=== PATIENT | male | born 1975 | race Caucasian/White ===

== ENCOUNTER → 2017-07-16 | Outpatient (CLI) | payer BC | LOC: RAD 14:45 | DX: M54.5 Low back pain (principal); R31.9 Hematuria, unspecified | CPT/HCPCS: 74000 ==

== ENCOUNTER → 2017-07-25 | Outpatient (CLI) | payer BC ==
--- NOTE | 2017-07-25 21:50 | Diagnostic Imaging Report ---
EXAMINATION: Supine view of the abdomen. INDICATION: Right-sided stone. FINDINGS: On the right side of the pelvis there is an 8 mm calcification which could relate to a distal ureteric stone. No other calcifications along the urinary tract are identified. Unremarkable bowel gas pattern is seen. IMPRESSION: There is an 8 mm calcification in the right side of the pelvis which could be a distal right ureteric stone. Dictated by: Dictated on workstation # [id number]
== END ==
LOC: RAD 10:54
PROVIDERS: ATTEND Urology
DX: R93.5 Abnormal findings on diagnostic imaging of other abdominal regions, including retroperitoneum (principal)
CPT/HCPCS: 74000

== ENCOUNTER → 2022-09-13 | Outpatient (CLI) | payer BC ==
[~2022-09-13] VITALS: Ht 182.9 cm; Wt 147.7 kg
[~2022-09-13] MED LIST: DICL75TA2 PO; GLUC100016 PO; LISI40TA9 PO
== END | disposition home or self-care (01) ==
LOC: PREOP 05:41
PROVIDERS: ATTEND Surgery
DX: Z01.818 Encounter for other preprocedural examination (principal)

== ENCOUNTER 2022-09-19 11:09 | Day surgery (SDC) | payer BC ==
[~2022-09-19] VITALS: Ht 182 cm; Wt 147.7 kg
[2022-09-19] MEDS ORDERED: LACTATED RINGERS 1,000 ML IV STA (11:12)
[2022-09-19] MEDS ORDERED: LIDOCAINE JELLY 2% 6 ML SYRINGE MM PRN (11:15)
[2022-09-19 11:38] VITALS: BP 127/62
--- NOTE | 2022-09-19 11:47 | Progress Note-Pre Operative ---
Pre-Operative Progress Note Date of Available H&P: Sep 19, 2022 Date H&P Reviewed: Sep 19, 2022 Time H&P Reviewed: 11:30 History & Physical: No changes noted Pre-Operative Diagnosis: screening/family hx colon ca ADRIANNA LY MD Sep 19, 2022 11:47
--- NOTE | 2022-09-19 11:48 | Discharge Inst-Surgical ---
D/C Lap Instructions-MALACHI Follow Up Activity as tolerated High Fiber Diet 25g or more per day Avoid Alcohol, Caffeine, Spicy [place] and Acid foods. Drink 64 fluid oz or more of fluids per day. Symptoms to Report: Fever over 101 degree F, Nausea/Vomiting If any problems/questions: Contact your physician or go to Emergency Room ADRIANNA LY MD Sep 19, 2022 11:48
[2022-09-19] MEDS ORDERED: ONDANSETRON 4 MG/2 ML (SDV) Z0FRAN IVP PRN (12:00)
[2022-09-19] MEDS ORDERED: ONDANSETRON 4 MG (ZOFRAN) ORAL DISSOLVE TAB PO PRN (12:00)
[2022-09-19] MEDS ORDERED: PROPOFOL INJECTION 50 ML IV ONE (12:24)
[2022-09-19 13:20] VITALS: BP 93/52
--- NOTE | 2022-09-19 13:22 | Anesthesia-General Post-Op ---
MAC Patient Condition Mental Status/LOC: Same as Preop Cardiovascular: Satisfactory Nausea/Vomiting: Absent Respiratory: Satisfactory Pain: Controlled Complications: Absent Post Op Complications Complications None Follow Up Care/Instructions Patient Instructions None needed. Anesthesiology Discharge Order Discharge Order Patient is doing well, no complaints, stable vital signs, no apparent adverse anesthesia problems. No complications reported per nursing. OTTO CH CRNA Sep 19, 2022 13:22
[2022-09-19 13:25] VITALS: BP 108/60
--- NOTE | 2022-09-19 13:36 | Progress Note-Post Operative ---
Post-Operative Progess Note Surgeon (s)/Smt Technician (s) Surgeon ADRIANNA LY MD Smt Technician: none Pre-Operative Diagnosis screening/family hx colon ca Post-Operative Diagnosis normal colon and rectum Procedure & Operative Findings Date of Procedure 09/19/22 Procedure Performed/Findings colonoscopy. Anesthesia Type mac Estimated Blood Loss Estimated blood loss (mL): minimal Specimens/Packing Specimens Removed none ADRIANNA LY MD Sep 19, 2022 13:36
[2022-09-19 13:50] VITALS: BP 119/78
[2022-09-19 13:58] VITALS: BP 119/78
--- NOTE | 2022-09-20 01:16 | OPERATIVE REPORT ---
DATE OF SERVICE: 09/19/2022 ATTENDING PRIMARY CARE PHYSICIAN: Moraima Veras DO PREOPERATIVE DIAGNOSIS: Screening colonoscopy with family history of colon cancer. POSTOPERATIVE DIAGNOSIS: Normal colon and rectum. PROCEDURE: Colonoscopy. SURGEON: Adrianna Ly MD ANESTHESIA: Monitored anesthesia care. ESTIMATED BLOOD LOSS: Minimal. FINDINGS: Normal colon and rectum. DISPOSITION: The patient tolerated the procedure well. INDICATIONS: The patient is a 46-year-old male referred her to us for a screening colonoscopy. He did have one done approximately 10 years ago, which was normal. He does not report any major issues with diarrhea or constipation as well as no red blood per rectum, nor any dark tarry stools. He does have a first-degree family history of colon cancer with his mother having the disease. DESCRIPTION OF PROCEDURE: The patient was brought to the endoscopy suite and laid in the left lateral decubitus position. After adequate IV pain associated with medications and monitored anesthesia care, a digital rectal examination was performed, which revealed chronic stage I, external and internal hemorrhoids, not actively edematous or inflamed and no bleeding. Normal sphincter tone was felt and there were no palpable masses. Prostate gland was palpable and appeared normal. The endoscope was then intubated into the anus and rectum gently insufflated. The endoscope was then advanced through the valves of [place] of the rectum with no polyps or any neoplasms. We then proceeded through the sigmoid colon where no diverticulosis identified. The endoscope was then advanced through the remainder of the descending, transverse and ascending colon to the cecum, which were normal. There were no polyps or neoplasms identified throughout the colon or rectum. The endoscope was then slowly withdrawn, taking a second look and suctioning of residual air with no additional findings. The patient tolerated the procedure well. We will recommend the necessary lifestyle and dietary accommodations including the incorporation of a high-fiber diet with a fiber supplement, which should equal or exceed 30 grams daily to promote soft stools on a daily basis. If he is asymptomatic, we will still recommend a followup colonoscopy every 5 years due to his first-degree family history of colon cancer. Job ID: [id number] DocumentID: [id number] Dictated Date: 09/19/2022 13:19:24 Field Laborer Date: 09/20/2022 01:15:00 Dictated By: ADRIANNA LY MD
== END 2022-09-19 13:58 | disposition home or self-care (01) ==
LOC: ENDO 11:09
PROVIDERS: ATTEND Surgery
DX: Z12.11 Encounter for screening for malignant neoplasm of colon (principal); Z80.0 Family history of malignant neoplasm of digestive organs; K64.0 First degree hemorrhoids; K64.4 Residual hemorrhoidal skin tags; E66.01 Morbid (severe) obesity due to excess calories; Z68.41 Body mass index [BMI] 40.0-44.9, adult

== ENCOUNTER → 2022-10-11 | Outpatient (CLI) | payer BC ==
--- NOTE | 2022-10-11 18:26 | Diagnostic Imaging Report ---
EXAMINATION: Left knee radiographs, 3 views. COMPARISON: None. HISTORY: 46-year-old male, left knee pain. Dislocation injury 2 weeks ago. FINDINGS: There is severe medial and patellofemoral compartment joint space loss. There are tricompartmental osteophytes. There is no knee joint effusion. Bone mineralization and alignment appear unremarkable. There is no identified acute fracture. There is no identified radiopaque foreign body. IMPRESSION: 1. No acute bony abnormality in the left knee. 2. Severe medial and patellofemoral compartment osteoarthritis without knee joint effusion. Dictated by: Dictated on workstation # [id number]
== END ==
LOC: RAD 12:23
PROVIDERS: ATTEND Nurse Practitioner Family
DX: M17.12 Unilateral primary osteoarthritis, left knee (principal); S83.105D Unspecified dislocation of left knee, subsequent encounter
CPT/HCPCS: 73562

== ENCOUNTER → 2022-10-30 | Outpatient (CLI) | payer BC | LOC: ORTHO 10:32 | PROVIDERS: ATTEND Orthopaedic Surgery | DX: M17.12 Unilateral primary osteoarthritis, left knee (principal); I10 Essential (primary) hypertension | CPT/HCPCS: 99213 ==

== ENCOUNTER 2022-11-19 08:55 | Day surgery (SDC) | payer BC ==
[2022-11-19] VITALS (11 sets, daily range): BP systolic 95–147; BP diastolic 53–97
[~2022-11-19] VITALS: Ht 180 cm; Wt 153.1 kg
[~2022-11-19 08:55] MED LIST changes: -ACET-2267 PO; -ASPI-1238 PO; -OXC5T PO
[2022-11-19] MEDS ORDERED: ceFAZolin INJECTION 3,000 MG in NS (IVPB) 100 ML IV ONE (09:00)
[2022-11-19] MEDS ORDERED: LIDOCAINE PF 2% 5 ML (XYLOCAINE) VIAL ONE ×2 (10:10→10:48)
[2022-11-19] MEDS ORDERED: MIDAZOLAM 2 MG/2 ML (VERSED) VIAL ONE ×2 (10:10→10:48)
[2022-11-19] MEDS ORDERED: ROPIVACAINE 5MG/ML 30ML VIAL ONE (10:10)
[2022-11-19] MEDS: LACTATED RINGERS 1,000 ML IV PRN ×3 (10:14→12:53)
[2022-11-19] MEDS ORDERED: ONDANSETRON 4 MG/2 ML (SDV) Z0FRAN ONE (10:48)
[2022-11-19] MEDS ORDERED: proPOfol 200 MG/20 ML (DIPRIVAN) VIAL IV ONE ×2 (10:48→11:25)
[2022-11-19] MEDS ORDERED: SEVOFLURANE (ULTANE) 15 ML INHAL SOLN ONE ×2 (10:48→13:39)
[2022-11-19] MEDS ORDERED: fentaNYL INJ 100 MCG/2 ML AMP ONE (10:48)
[2022-11-19] MEDS ORDERED: TRANEXAMIC ACID 100 MG/ML 10 ML INJECTION ONE (11:54)
[2022-11-19] MEDS ORDERED: GLYCOPYRROLATE 0.2 MG/ML (ROBINUL) 2 ML VIAL ONE (11:58)
[2022-11-19] MEDS ORDERED: PHENYLEPHRINE 100 MCG/ML 10 ML (ANESTHESIA) SYR ONE (11:58)
[2022-11-19] MEDS ORDERED: HYDROmorphone 2 MG/ML VIAL (DILAUDID) ONE ×2 (12:14→14:11)
[2022-11-19] MEDS ORDERED: KETAMINE 50 MG/5 ML SYRINGE ONE (12:18)
[2022-11-19] MEDS ORDERED: KETOROLAC 30 MG/ML VIAL ONE (13:39)
--- NOTE | 2022-11-19 13:59 | Progress Note-Pre Operative ---
Pre-Operative Progress Note Date of Available H&P: Oct 31, 2022 Date H&P Reviewed: Nov 19, 2022 Time H&P Reviewed: 11:30 History & Physical: H&P Reviewed, Patient Examed, No changes noted Pre-Operative Diagnosis: Left Knee Primary Osteoarthritis SHARAD BANG MD Nov 19, 2022 13:59
--- NOTE | 2022-11-19 14:02 | Operative Report - Ortho ---
Operative Report Surgeon (s)/Software Development Intern (s) Surgeon SHARAD BANG MD Software Development Intern n/a Pre-Operative Diagnosis Left Knee Primary Osteoarthritis Post-Operative Diagnosis same Operative Report Date of Procedure: Nov 19, 2022 Name of Procedure Performed: Left Total Knee Arthroplasty Description & Findings After obtaining informed consent and marking the patient in the preoperative holding area, the patient did receive IV antibiotics. Patient was taken to the operating room and anesthesia was induced. Surgical timeout was taken. The left lower extremity was prepped and draped in the usual sterile fashion. Incision was made and carried down to fascia. Arthrotomy was performed on the medial side of the patella. Patella was retracted laterally and knee was flexed. Found to have circumferential osteophtye around the distal femur as well as exposed bone in the medial compartment. Hole was made in the distal femur for the intramedullary distal femoral cutting guide. Resection was made then the femur was sized as a 6. 4-in-1 block for a size [address]. Anterior cut was made and there was no notch. Posterior cut was made followed by the chamfers. Box cut was performed. Lug holes were drilled. Attention was turned to the tibial side, extramedullary tibial guide was put into place and aligned with the tibial crest. It was set to take 2 mm off of the affected medial side. Drop alistair was used to confirm alignment. Resection was made and was parallel to the joint line. Tibial bone block was removed. [place] hospice superintendent was put into place and the menisci and posterior osteophytes were removed. The knee was trialed with a size 5 femur and a size 5 tibia with a 9 mm poly trial. It was found to come out to full extension and flexed beyond 120 degrees. It was stable to varus and valgus stress throughout its range of motion. This was accepted. Knee was brought out into extension and the patella was prepared for an inset patellar component. Osteophytes were removed from around the perimeter of the patella. Trial implants were removed. Tibial tray was pinned and punched. Tibial press fit guide was placed and holes were drilled. The cut bone surfaces were lavaged with pulsatile normal saline. Implants were opened and assembled on the back table. A size 5 press fit tibial component was impacted into place. A size 5 press fit femoral component was impacted into place. Tibial tray was lavaged with saline. A 9 mm thick polyethylene component was locked into placed and the locking mechanism was checked. Knee was brought into extension. Patellar component was press fit in to place with clamp. Betadine soak was performed and then, the knee was irrigated with normal saline. The knee was once again trialed; found to come to full extension, flexed beyond 120 degrees, and was stable to varus and valgus stress. Tourniquet was dropped and electrocautery was used for hemostasis. Fascial layer was closed with #2 Stratafix. The subcutaneous layer was closed with 2-0 Vicryl. The skin was closed with a running subcuticular 3-0 V-loc. Wound was dressed with steri- strips, xeroform, 4x4s, ABD, webril, and ERIC wrap. Patient tolerated the procedure well and was stable to the recovery room. Anesthesia Type General plus regional Estimated Blood Loss ~150 mL Specimen(s) collected/removed None SHARAD BANG MD Nov 19, 2022 14:02
[2022-11-19] MEDS ORDERED: BISACODYL 5 MG (DULCOLAX) TABLET PO PRN (14:15)
[2022-11-19] MEDS ORDERED: ACETAMINOPHEN 500 MG TAB (TYLENOL) PO PRN (14:15)
[2022-11-19] MEDS ORDERED: ONDANSETRON 4 MG/2 ML (SDV) Z0FRAN IV PRN (14:15)
[2022-11-19] MEDS ORDERED: morphine INJ 4 MG/ML 1 ML (VIAL/SYRINGE) IVP PRN (14:15)
[2022-11-19] MEDS ORDERED: HYDROmorphone 2 MG/ML VIAL (DILAUDID) IV ONE (14:15)
[2022-11-19] MEDS ORDERED: MILK OF MAGNESIA 400 MG/5 ML 30 ML UDC PO PRN (14:15)
[2022-11-19] MEDS ORDERED: ONDANSETRON 4 MG/2 ML (SDV) Z0FRAN IVP PRN (14:15)
--- NOTE | 2022-11-19 14:33 | Diagnostic Imaging Report ---
CLINICAL HISTORY: Postop left total knee arthroplasty. COMPARISON: 11/19/2022. TECHNIQUE: 2 views of the left knee. FINDINGS: Interval postsurgical changes of left total knee arthroplasty are visualized. The femoral and tibial components appear well seated. No periprosthetic fracture. Alignment is anatomic. IMPRESSION: 1. Expected postsurgical changes of left total knee arthroplasty. Dictated by: Dictated on workstation # [id number]
[2022-11-19] MEDS: NS IV 1000 ML 1,000 ML IV SCH (15:49)
[2022-11-19] MEDS: ASPIRIN E.C. 81 MG (ECOTRIN) TAB PO SCH (17:03)
[2022-11-19] MEDS: DOCUSATE SODIUM 100 MG (COLACE) CAP PO SCH (20:11)
[2022-11-19] MEDS: CELECOXIB 100 MG (CeleBREX) CAP PO SCH (20:11)
[2022-11-19] MEDS: ceFAZolin INJECTION 2,000 MG in NS (IVPB) 50 ML IV SCH (20:11)
[2022-11-19] MEDS ORDERED: ceFAZolin INJECTION 2,000 MG in NS (IVPB) 50 ML IV SCH (21:00)
[2022-11-20] MEDS: NS IV 1000 ML 1,000 ML IV SCH ×2 (00:34→02:31)
[2022-11-20 03:32] VITALS: BP 113/65
[2022-11-20] MEDS: ceFAZolin INJECTION 2,000 MG in NS (IVPB) 50 ML IV SCH (04:43)
[2022-11-20 05:23] LABS: HEMOGLOBIN 11.7 g/dL (13.3-17.7)
[2022-11-20 07:42] VITALS: BP 141/80
[2022-11-20] MEDS: CELECOXIB 100 MG (CeleBREX) CAP PO SCH ×2 (08:07→20:04)
[2022-11-20] MEDS: lisINopril 40 MG (PRINIVIL) TABLET PO SCH (08:07)
[2022-11-20] MEDS: ASPIRIN E.C. 81 MG (ECOTRIN) TAB PO SCH ×2 (08:07→16:25)
[2022-11-20] MEDS: DOCUSATE SODIUM 100 MG (COLACE) CAP PO SCH ×2 (08:07→20:03)
--- NOTE | 2022-11-20 08:36 | Physical Therapy Evaluation ---
PT Evaluation-General Medical Diagnosis Admission Date November 19, 2022 Medical Diagnosis: left TKR Onset Date: Nov 19, 2022 Therapy Diagnosis Therapy Diagnosis: impaired mobility Precautions Precautions/Isolations: Fall Prevention, Standard Precautions Weight Bear Status Right Lower Extremity: Right Full Weight Bearing Left Lower Extremity: Left Weight Bearing/Tolerated Referral Physician: Hector Reason for Referral: Evaluation/Treatment Medical History Pertinent Medical History: OA Current History s/p elective left TKR Reviewed History: Yes Social History Home: Single Level Current Living Status: Alone Entry Into Home: Stairs Without Railing (platform) PT Steps Into Home: 1 Prior Prior Level of Function SCALE: Activities may be completed with or without assistive devices. 7-Vxrwvjrkot-qcjylte completes the activity by him/herself with no assistance from a helper. 5-Set-up or Clean-up Assistance-helper sets up or cleans up; patient completes activity. [place] assists only prior to or following the activity. 4-Supervision or Touching Assistance-helper provides verbal cues and/or touching/steadying and/or contact guard assistance as patient completes ac tivity. Assistance may be provided throughout the activity or intermittently. 3-Partial/Moderate Assistance-helper does LESS THAN HALF the effort. [place] lifts, holds or supports trunk or limbs, but provides less than half the effort. 2-Substantial/Maximal Assistance-helper does MORE THAN HALF the effort. [place] lifts or holds trunk or limbs and provides more than half the effort. 4-Pitdhlbuy-khrgaa does ALL the effort. Patient does none of the effort to complete the activity. Or, the assistance of 2 or more helpers is required for the patient to complete the activity. If activity was not attempted, code reason: 7-Patient Refused. 9-Not Applicable-not attempted and the patient did not perform the activity before the current illness, exacerbation or injury. 10-Not Attempted due to Environmental Limitations-(lack of equipment, weather restraints, etc.). 88-Not Attempted due to Medical Conditions or Safety Concerns. Bed Mobility: 6 Transfers (B,C,W/C): 6 Gait: 6 Stairs: 6 Indoor Mobility (Ambulation): Independent Stairs: Independent Prior Devices Use: None PT Evaluation-Current Subjective Patient agrees to PT. Pain Numeric Pain Scale: 7 Location: Left Location Body Site: Knee Pain Description: Acute Objective Patient Orientation: Normal For Age ROM/Strength ROM Lower Extremities left knee flexion 50 degrees with 0 extension right LE WFL Strength Lower Extremities right LE 5/5 grossly/left LE 3/5 grossly Integumentary/Posture Bowel Incontinence: No Bladder Incontinence: No Posture WFL Neuromuscular (Tone, Coordination, Reflexes) grossly intact Sensory Vision: Functional Hearing: Functional Sensation Right Lower Extremit: Intact Sensation Left Lower Extremity: Intact Transfers Lying to Sitting/Side of Bed(Q: 4 Sit to Stand (QC): 4 Chair/Nua-da-Uqvqi Xfer(QC): 4 Gait Mode of Locomotion: Walk Anticipated Mode of Locomotion: Walk Walk 10 feet (QC): 4 Walk 50 ft with 2 Turns(QC): 4 Walk 150 ft (QC): 4 Distance: 250' Gait Assistive Device: FWW Comments/Gait Description slow, steady, antalgic Balance Sitting Static: Normal Sitting Dynamic: Normal Standing Static: Normal Standing Dynamic: Normal Assessment/Needs Patient will benefit from skilled PT to address functional strength and mobility to improve current LOF to safely return to home at maximum LOF. Rehab Potential: Good PT Fur Dresser Goals Fur Dresser Goals PT Fur Dresser Goals Time Frame: Nov 24, 2022 Roll Left & Right (QC): 6 Sit to Lying (QC): 6 Lying-Sitting on Side/Bed(QC): 6 Sit to Stand (QC): 6 Chair/Pvc-wo-Qfxta Xfer(QC): 6 Toilet Transfer (QC): 6 Walk 10 feet (QC): 6 Walk 50ft with 2 Turns (QC): 6 Walk 150 ft (QC): 6 PT Plan Treatment/Plan Treatment Plan: Continue Plan of Care Treatment Plan: Bed Mobility, Education, Functional Activity Jim, Functional Strength, Gait, Safety, Therapeutic Exercise, Transfers Treatment Duration: Nov 24, 2022 Frequency: 11 times per week Estimated Hrs Per Day: .5 hour per day Patient and/or Family Agrees t: Yes Time Time In: 720 Time Out: 739 DATE: Nov 20, 2022 Total Billed Treatment Time: 19 Total Billed Treatment 1 visit EVModC 19 min LORI CYR PT Nov 20, 2022 08:36
--- NOTE | 2022-11-20 09:07 | Progress Note - Ortho ---
Progress Note Subjective Date of Exam 11/20/22 Chief Complaint POD #1 L TKA HPI/Events since last exam up in chair, made a lap with therapy, pain controlled Review of Systems - Allergies: Coded Allergies: No Known Drug Allergies (Unverified , 11/13/22) Home Meds Reported Medications Glucosamine/D3/Boswellia Sonia (Osteo Bi-Flex Tablet) 1,500 Mg-400 Unit-100 Mg Tablet, 1 EACH PO, TAB 11/12/22 Multivitamin (Multivitamin) 1 Each Tablet, 1 EACH PO DAILY, TAB 11/12/22 Diclofenac Sodium (Diclofenac Sodium) 75 Mg Tablet.dr, 75 MG PO DAILY, TAB 09/13/22 Lisinopril (Lisinopril) 40 Mg Tablet, 40 MG PO DAILY, TAB 09/13/22 Discontinued Reported Medications Glucosamine Sulfate 2Kcl (Glucosamine) 1,000 Mg Tablet, 1000 MG PO DAILY, TAB 09/13/22 Objective Exam L Knee: Dressing beginning to sag but C/D/I, +DF of ankle, no s/s of DVT Vital Signs Vital Signs Date Time Temp Pulse Resp B/P (MAP) Pulse Ox O2 Delivery O2 Flow Rate FiO2 11/20/22 08:20 95 Room Air 11/20/22 07:42 36.4 85 20 141/80 (100) 95 Room Air 2.00 2.00 11/20/22 03:32 37.5 77 18 113/65 (81) 95 Room Air 11/19/22 23:09 37.8 90 20 101/59 (73) 92 Room Air 11/19/22 20:15 Room Air 11/19/22 19:25 37.4 98 20 115/57 (76) 92 Room Air 11/19/22 15:30 36.6 92 20 130/92 (105) 97 Room Air 11/19/22 15:00 36.3 20 118/95 (103) 97 Room Air 11/19/22 15:00 Room Air 11/19/22 14:50 20 120/94 (103) 97 Room Air 11/19/22 14:45 OxyMask 2.00 11/19/22 14:40 20 119/86 (97) 98 OxyMask 4.00 11/19/22 14:30 20 119/86 (97) 98 OxyMask 4.00 11/19/22 14:30 OxyMask 3.00 2/6/23 14:20 20 138/79 (98) 98 OxyMask 6.00 11/19/22 14:15 OxyMask 6.00 11/19/22 14:10 20 110/63 (79) 96 OxyMask 6.00 11/19/22 14:00 OxyMask 6.00 11/19/22 14:00 36.3 20 95/53 (67) 96 OxyMask 6.00 11/19/22 09:45 36.6 76 20 147/97 (114) 98 Room Air I & O 11/20/22 07:00 Intake Total 3822 ml Output Total 975 ml Balance 2847 ml Lab Results Laboratory Tests 11/20/22 05:00: Hemoglobin 11.7L, Hematocrit 35L Microbiology 11/13/22 MRSA Screen - Final, Complete MRSA not isolated Imaging 2 postop views of the left knee dated 11/20/22 were reviewed AP with good alignment and no complication, second image is very obliqued and not much diagnostic use Assessment and Plan Assessment Left Knee Primary Osteoarthritis s/p Left Total Knee Arthroplasty Problem List Left Knee Primary Osteoarthritis s/p Left Total Knee Arthroplasty Plan PT/OT DVT Prophylaxis Plan for home with home health tomorrow Final Diagonsis Left Knee Primary Osteoarthritis s/p Left Total Knee Arthroplasty Level of the visit: Level 3 (global) SHARAD BANG MD Nov 20, 2022 09:07
--- NOTE | 2022-11-20 09:16 | Occupational Therapy Eval ---
OT Evaluation-General/PLF Medical Diagnosis Admission Date Medical Diagnosis: left TKR Onset Date: Nov 19, 2022 Therapy Diagnosis Therapy Diagnosis: weakness Precautions Precautions/Isolations: Fall Prevention, Standard Precautions Weight Bear Status Weight Bearing Restriction: Weight Bearing/Tolerated Location Restriction: L LE Referral Physician: Hector Referral Reason: Evaluation/Treatment Medical History Pertinent Medical History: OA Current History s/p LTKA Reviewed History: Yes Social History Home: Single Level Current Living Status: Alone Entry Into Home: Stairs Without Railing (platform) Steps Into Home: 1 ADL-Prior Level of Function SCALE: Activities may be completed with or without assistive devices. 8-Jjuilqaduj-fgopezt completes the activity by him/herself with no assistance from a helper. 5-Set-up or Clean-up Assistance-helper sets up or cleans up; patient completes activity. [place] assists only prior to or following the activity. 4-Supervision or Touching Assistance-helper provides verbal cues and/or touching/steadying and/or contact guard assistance as patient completes activity. Assistance may be provided throughout the activity or intermittently. 3-Partial/Moderate Assistance-helper does LESS THAN HALF the effort. [place] lifts, holds or supports trunk or limbs, but provides less than half the effort. 2-Substantial/Maximal Assistance-helper does MORE THAN HALF the effort. [place] lifts or holds trunk or limbs and provides more than half the effort. 5-Ilhlwrrdb-ownsat does ALL the effort. Patient does none of the effort to complete the activity. Or, the assistance of 2 or more helpers is required for the patient to complete the activity. If activity was not attempted, code reason: 7-Patient Refused. 9-Not Applicable-not attempted and the patient did not perform the activity before the current illness, exacerbation or injury. 10-Not Attempted due to Environmental Limitations-(lack of equipment, weather restraints, etc.). 88-Not Attempted due to Medical Conditions or Safety Concerns. 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, [address] Self: Yes OT Current Status Subjective Up in chair w/ LLE in extension 4/10 c/o pain Pain Numeric Pain Scale: 4 Location: Left Location Body Site: Knee Mental Status/Objective Patient Orientation: Person, Place, Time, Situation Attachments: IV, Polar Pack (in room declines use at this time) Current Upper Extremity ROM BUE ROM/Strength/coordination and sensation WNLs ADL-Treatment ADL-Current LB dressing and toileting Eating (QC): 6 Oral Hygiene (QC): 5 Shower/Bathe Self (QC): 7 (declines) Upper Body Dressing (QC): 5 Lower Body Dressing (QC): 5 On/Off Footwear (QC): 5 Toileting Hygiene (QC): 5 set up d/t IV pole and AD for ambulation Other Treatments polar pack use and education Education OT Patient Education: Correct positioning, Energy conservation, Modified ADL techniques, Progress toward Goal/Update tx plan, Purpose of tx/functional activities, Reviewed precautions, Rehab process, Safety issues, Transfer techniques, Use of adapted equipment Teaching Recipient: Patient Teaching Methods: Demonstration, Discussion Response to Teaching: Verbalize Understanding, Return Demonstration, Reinforcement Needed OT Machine Lead Burner Goals Machine Lead Burner Goals Additional Goals: 1-Demonstrate ADL Tasks, 2-Verbalize Understanding 1=Demonstrate adherence to instructed precautions during ADL tasks. 2=Patient will verbalize/demonstrate understanding of assistive devices/modifications for ADL. 3=Patient will improve strength/tolerance for activity to enable patient to perform ADL's. OT Education/Plan Problem List/Assessment Assessment: No Skilled OT Needs ID'd Discharge Recommendations Plan/Recommendations: Discharge/Goals Met Therapy Discharge Recommendati: Post Acute PT Treatment Plan/Plan of Care Treatment,Training & Education: Yes Patient would benefit from OT for education, treatment and training to promote independence in ADL's, mobility, safety and/or upper extremity function for ADL's. Plan of Care: OTHER (post op education for I/ADLS) Treatment Duration: Nov 20, 2022 Frequency: 1 time per week Rehab Potential: Good Time Start Time: 08:49 Stop Time: 09:20 DATE: Nov 20, 2022 Total Time Billed (hr/min): 31 Billed Treatment Time 1 visit EVL 1 ADL 1 31 min TRELL MONTES OT Nov 20, 2022 09:16
--- NOTE | 2022-11-20 10:00 | Anesthesia-General Post-Op ---
General Patient Condition Mental Status/LOC: Same as Preop Cardiovascular: Satisfactory Nausea/Vomiting: Absent Respiratory: Satisfactory Pain: Controlled Complications: Absent Post Op Complications Complications None Follow Up Care/Instructions Patient Instructions None needed. Anesthesia/Patient Condition Patient Condition Patient is doing well, no complaints, stable vital signs, no apparent adverse anesthesia problems. No complications reported per nursing. D/C home per [facility] Criteria: Yes TYRONE MARES CRNA Nov 20, 2022 10:00
[2022-11-20] MEDS ORDERED: ACET-2267 PO (11:33)
[2022-11-20 11:36] VITALS: BP 123/78
--- NOTE | 2022-11-20 13:48 | Physical Therapy Daily Note ---
PT Daily Note-Current Subjective Patient agrees to PT. Pain Numeric Pain Scale: 5-Moderate Pain Location: Left Location Body Site: Knee Pain Description: Acute Section J - Health Conditions 1. Rarely or not at all 2. Occasionally 3. Frequently 4. Almost constantly 8. Unable to answer Pain Effect on Sleep: 1 Pain Interference with Therapy: 1 Pain Interference w/Day-to-Day: 1 Mental Status Patient Orientation: Normal For Age Transfers SCALE: Activities may be completed with or without assistive devices. 4-Cldpbpvdam-srnbhco completes the activity by him/herself with no assistance from a helper. 5-Set-up or Clean-up Assistance-helper sets up or cleans up; patient completes activity. [place] assists only prior to or following the activity. 4-Supervision or Touching Assistance-helper provides verbal cues and/or touching/steadying and/or contact guard assistance as patient completes activity. Assistance may be provided throughout the activity or intermittently. 3-Partial/Moderate Assistance-helper does LESS THAN HALF the effort. [place] lifts, holds or supports trunk or limbs, but provides less than half the effort. 2-Substantial/Maximal Assistance-helper does MORE THAN HALF the effort. [place] lifts or holds trunk or limbs and provides more than half the effort. 5-Mpbjglrby-ebganv does ALL the effort. Patient does none of the effort to complete the activity. Or, the assistance of 2 or more helpers is required for the patient to complete the activity. If activity was not attempted, code reason: 7-Patient Refused. 9-Not Applicable-not attempted and the patient did not perform the activity before the current illness, exacerbation or injury. 10-Not Attempted due to Environmental Limitations-(lack of equipment, weather restraints, etc.). 88-Not Attempted due to Medical Conditions or Safety Concerns. Sit to Stand (QC): 6 Weight Bearing Right Lower Extremity: Right Full Weight Bearing Left Lower Extremity: Left Weight Bearing/Tolerated Gait Training Distance: 250' Walk 10 feet (QC): 6 Walk 50 ft with 2 Turns(QC): 6 Walk 150 ft (QC): 6 Gait Assistive Device: FWW slow, steady, antalgic gait Exercises Supine Ex: Ankle pumps, Quad Set, Heel Slides, Straight leg raise Supine Reps: 15 (in recliner with bilateral LE elevated.) Seated Therapy Exercises: Long arc quads Seated Reps: 15 Assessment Patient instructed to ambulate PRN in hallway independently. RN notified. Patient progressing with treatment plan and will dismiss tomorrow after PT. PT Senior Premium Auditor Goals Senior Premium Auditor Goals PT Senior Premium Auditor Goals Time Frame: Nov 24, 2022 Roll Left & Right (QC): 6 Sit to Lying (QC): 6 Lying-Sitting on Side/Bed(QC): 6 Sit to Stand (QC): 6 Chair/Wrv-rc-Reibw Xfer(QC): 6 Toilet Transfer (QC): 6 Walk 10 feet (QC): 6 Walk 50ft with 2 Turns (QC): 6 Walk 150 ft (QC): 6 PT Plan Treatment/Plan Treatment Plan: Continue Plan of Care Treatment Plan: Bed Mobility, Education, Functional Activity Jim, Functional Strength, Gait, Safety, Therapeutic Exercise, Transfers Treatment Duration: Nov 24, 2022 Frequency: 11 times per week Estimated Hrs Per Day: .5 hour per day Patient and/or Family Agrees t: Yes Time Time In: 1250 Time Out: 1300 DATE: Nov 20, 2022 Total Billed Treatment Time: 10 Total Billed Treatment 1 visit FA 10 min LORI CYR PT Nov 20, 2022 13:48
[2022-11-20 15:16] VITALS: BP 146/81
[2022-11-20 19:01] VITALS: BP_SYST 141; BP_SYST 167; BP_DIAS 76; BP_DIAS 82
[2022-11-20 23:26] VITALS: BP 136/76
[2022-11-21 04:05] VITALS: BP 131/83
[2022-11-21 05:20] LABS: HEMOGLOBIN 11.4 g/dL (13.3-17.7)
[2022-11-21] MEDS: DOCUSATE SODIUM 100 MG (COLACE) CAP PO SCH (07:42)
[2022-11-21] MEDS: lisINopril 40 MG (PRINIVIL) TABLET PO SCH (07:42)
[2022-11-21] MEDS: CELECOXIB 100 MG (CeleBREX) CAP PO SCH (07:42)
[2022-11-21] MEDS: ASPIRIN E.C. 81 MG (ECOTRIN) TAB PO SCH (07:43)
--- NOTE | 2022-11-21 07:55 | Physical Therapy Daily Note ---
PT Daily Note-Current Subjective Pt. agrees to Rx, states he slept better. c/o pain in left knee at 5/10 Pain Numeric Pain Scale: 5-Moderate Pain Location: Left Location Body Site: Knee Pain Description: Ache Section J - Health Conditions 1. Rarely or not at all 2. Occasionally 3. Frequently 4. Almost constantly 8. Unable to answer Pain Effect on Sleep: 1 Pain Interference with Therapy: 2 Pain Interference w/Day-to-Day: 1 Mental Status Patient Orientation: Normal For Age Attachments: Other-See Comments (polar pack after Rx) Transfers SCALE: Activities may be completed with or without assistive devices. 3-Dzrxgpdmtf-yeplilp completes the activity by him/herself with no assistance from a helper. 5-Set-up or Clean-up Assistance-helper sets up or cleans up; patient completes activity. [place] assists only prior to or following the activity. 4-Supervision or Touching Assistance-helper provides verbal cues and/or touching/steadying and/or contact guard assistance as patient completes activity. Assistance may be provided throughout the activity or intermittently. 3-Partial/Moderate Assistance-helper does LESS THAN HALF the effort. [place]oden lifts, holds or supports trunk or limbs, but provides less than half the effort. 2-Substantial/Maximal Assistance-helper does MORE THAN HALF the effort. [place] lifts or holds trunk or limbs and provides more than half the effort. 1-Dchkmdnmo-qiekri does ALL the effort. Patient does none of the effort to complete the activity. Or, the assistance of 2 or more helpers is required for the patient to complete the activity. If activity was not attempted, code reason: 7-Patient Refused. 9-Not Applicable-not attempted and the patient did not perform the activity before the current illness, exacerbation or injury. 10-Not Attempted due to Environmental Limitations-(lack of equipment, weather restraints, etc.). 88-Not Attempted due to Medical Conditions or Safety Concerns. Roll Left & Right (QC): 6 Sit to Lying (QC): 4 Lying to Sitting/Side of Bed(Q: 6 Sit to Stand (QC): 6 Chair/Ajt-vs-Cxnyh Xfer(QC): 6 pt. continues dependent for SLR and was assisted CGA to min with LLE into bed Weight Bearing Right Lower Extremity: Right Full Weight Bearing Left Lower Extremity: Left Weight Bearing/Tolerated Gait Training Does the Patient Walk?: Yes Gait Assistive Device: FWW 350ft plus with SBA, no LOB, good heel strike and knee flexion with toe off. , equal step length good pattern Exercises Supine Ex: Ankle pumps, Quad Set, Heel Slides, Short Arc Quads, Scooting, Straight leg raise (asstd) Supine Reps: 12 (x2) emphasis on SLR fortunato for sit to sup Treatments TKR ex protocol, TRFs, gait, polar pack ice refilled and applied after Rx for pain control Assessment Current Status: Good Progress PT Halfway Goals Halfway Goals PT Digital Advertising Analyst Goals Time Frame: Nov 24, 2022 Roll Left & Right (QC): 6 Sit to Lying (QC): 6 Lying-Sitting on Side/Bed(QC): 6 Sit to Stand (QC): 6 Chair/Zfa-dm-Wktoz Xfer(QC): 6 Toilet Transfer (QC): 6 Walk 10 feet (QC): 6 Walk 50ft with 2 Turns (QC): 6 Walk 150 ft (QC): 6 PT Plan Treatment/Plan Treatment Plan: Continue Plan of Care Treatment Plan: Bed Mobility, Education, Functional Activity Jim, Functional Strength, Gait, Safety, Therapeutic Exercise, Transfers Treatment Duration: Nov 24, 2022 Frequency: 11 times per week Estimated Hrs Per Day: .5 hour per day Patient and/or Family Agrees t: Yes Safety Risks/Education Patient Education: Gait Training, Transfer Techniques, Correct Positioning, Disease Process Teaching Recipient: Patient Teaching Methods: Demonstration, Discussion Response to Teaching: Verbalize Understanding, Return Demonstration, Reinforcement Needed Time Time In: 725 Time Out: 750 DATE: Nov 21, 2022 Total Billed Treatment Time: 25 Total Billed Treatment 1,GT13,EX12 DORINA FERNÁNDEZ DRAWER WAXER Nov 21, 2022 07:55
[2022-11-21 08:05] VITALS: BP 142/104
[2022-11-21 08:08] VITALS: BP 139/76
[2022-11-21] MEDS ORDERED: OXC5T PO (09:05)
[2022-11-21] MEDS ORDERED: ASPI-1238 PO (09:05)
--- NOTE | 2022-11-21 09:10 | Discharge Summary ---
Discharge Summary Hospital Course Hospital Course Date of Admission: 11/19/21 Admission Diagnosis : Left Knee Primary Osteoarthritis Family Physician/Provider: Moraima Veras DO Date of Discharge: 11/21/22 Discharge Diagnosis: [Left Knee Primary Osteoarthritis s/p Total Knee Arthroplasty ] Hospital Course: [On 11/19/22, patient underwent left total knee arthroplasty. Tolerated the procedure well and was transferred to the regular floor. On the day of surgery, began mechanical DVT prophylaxis and started to work with therapy. On POD #1, made good progress with therapy and began chemical DVT prophylaxis. On POD #2, continued to make progress with therapy and home health arrangements were made. Patient was ready for discharge home.] Labs and Pending Lab Test: Laboratory Tests 11/21/22 04:58: Hemoglobin 11.4L, Hematocrit 34L Microbiology 11/13/22 MRSA Screen - Final, Complete MRSA not isolated Home Meds Active Oxyir Tablet (Oxycodone HCl) 5 Mg Tab 10 Mg PO Q4H PRN 7 Days Aspirin EC (Aspirin) 81 Mg Tablet.dr 81 Mg PO BID WITH MEALS 14 Days Reported Tylenol Extra Strength (Acetaminophen) 500 Mg Tablet 500-1,000 Mg PO Q8H PRN Osteo Bi-Flex Tablet (Glucosamine/D3/Boswellia Sonia) 1,500 Mg-400 Unit-100 Mg Tablet 1 Each PO HS Multivitamin 1 Each Tablet 1 Each PO DAILY Diclofenac Sodium 75 Mg Tablet.dr 75 Mg PO BID Lisinopril 40 Mg Tablet 40 Mg PO DAILY Assessment/Pt Instructions WBAT on left leg with walker for assist, dry dressing daily to incision site, home therapy for ROM/strengthening/gait training, F/U with Dr. Young ~2 weeks from date of surgery Discharge Physical Examination Vital Signs Vital Signs Date Time Temp Pulse Resp B/P (MAP) Pulse Ox O2 Delivery O2 Flow Rate FiO2 11/21/22 08:08 105 139/76 (97) 11/21/22 08:05 36.9 18 96 Room Air 11/20/22 07:42 2.00 2.00 Extremity: Other (L Knee: Incision C/D/I, +DF of ankle, no s/s of DVT) Allergies: Coded Allergies: No Known Drug Allergies (Unverified , 11/13/22) Discharge Summary Date of Admission Date of Discharge SHARAD YOUNG MD Nov 21, 2022 09:10
--- NOTE | 2022-11-21 09:11 | D/C HH Face to Face Order ---
D/C Face to Face Orders Instructions for Patient Via [facility], Patient Instructions/FollowUp: WBAT on left leg with walker for assist, dry dressing daily to incision site, home therapy for ROM/strengthening/gait training, F/U with Dr. Young ~2 weeks from date of surgery Physician to follow Patient: Malick Young Discharge Diet for Home: Regular Diet Patient Data-Allergies,Ht & Wt Patient Allergies: Coded Allergies: No Known Drug Allergies (Unverified , 11/13/22) Home Health Need/Face to Face Date of Face to Face: Nov 21, 2022 Clinical Findings: Muscle weakness, Pain with ambulation I have seen Pt szqk-gl-udbj: Yes Discharged To: Home Diagnosis/Conditions: Left Knee Primary Osteoarthritis s/p TKA Patient is Homebound due to: Muscle weakness, Pain w/ambulation Homebound Status Due to the above stated illness, injury or surgical procedure (medical condition or diagnosis) and associated clinical findings, the patient is homebound because of his/her inability to leave home except with aid of a supportive device and/or person AND leaving the home requires a considerable and taxing effort or is medically contraindicated. Pt req the following assistanc: Walker Home Health Nursing Orders Home Health Services Order: Physical Therapy-Evaluate & Treat Home Health Infusion Therapy Line Start Date: Nov 19, 2022 Certify Stmt I certify that this patient is under my care and that I, a nurse practitioner or a physician; a executive chef assistant working with me, had a face to face encounter that - meets the physician face to face encounter requirements with this patient as dated. MALICK YOUNG MD Nov 21, 2022 09:11
--- NOTE | 2022-11-21 10:59 | Physical Therapy Daily Note ---
PT Daily Note-Current Subjective Pt. agrees to Rx, family present and waiting for DC papers to be prepped. pt and family states they have all the equipment and arrangements for home ready. Pt. c/o pain at 4/10 left knee Pain Numeric Pain Scale: 4 Location: Left Location Body Site: Knee Pain Description: Ache Section J - Health Conditions 1. Rarely or not at all 2. Occasionally 3. Frequently 4. Almost constantly 8. Unable to answer Pain Effect on Sleep: 1 Pain Interference with Therapy: 2 Pain Interference w/Day-to-Day: 1 Mental Status Patient Orientation: Normal For Age Attachments: Polar Pack Transfers SCALE: Activities may be completed with or without assistive devices. 4-Dzisdbdgqd-xowreqc completes the activity by him/herself with no assistance from a helper. 5-Set-up or Clean-up Assistance-helper sets up or cleans up; patient completes activity. [place] assists only prior to or following the activity. 4-Supervision or Touching Assistance-helper provides verbal cues and/or touching/steadying and/or contact guard assistance as patient completes activity. Assistance may be provided throughout the activity or intermittently. 3-Partial/Moderate Assistance-helper does LESS THAN HALF the effort. [place] lifts, holds or supports trunk or limbs, but provides less than half the effort. 2-Substantial/Maximal Assistance-helper does MORE THAN HALF the effort. [place] lifts or holds trunk or limbs and provides more than half the effort. 0-Roitmzfxd-bmdatx does ALL the effort. Patient does none of the effort to complete the activity. Or, the assistance of 2 or more helpers is required for the patient to complete the activity. If activity was not attempted, code reason: 7-Patient Refused. 9-Not Applicable-not attempted and the patient did not perform the activity before the current illness, exacerbation or injury. 10-Not Attempted due to Environmental Limitations-(lack of equipment, weather restraints, etc.). 88-Not Attempted due to Medical Conditions or Safety Concerns. pt. required min to CGA into bed LLE, uses RLE to support LLE Weight Bearing Right Lower Extremity: Right Full Weight Bearing Left Lower Extremity: Left Weight Bearing/Tolerated Gait Training Does the Patient Walk?: Yes Gait Assistive Device: FWW 400ft Mod I no LOB, good pattern , heavy wt bearing on FWW Stair Training discussed/ educated in stair step sequence, pt. has one platform type step at home Exercises Supine Ex: Ankle pumps, Quad Set, Heel Slides, Short Arc Quads, Straight leg raise (asstd) Supine Reps: 12 Treatments GT,EX,TRFs Assessment Current Status: Good Progress PT Brand Planner Goals Senior Living Goals PT Brand Planner Goals Time Frame: Nov 24, 2022 Roll Left & Right (QC): 6 Sit to Lying (QC): 6 Lying-Sitting on Side/Bed(QC): 6 Sit to Stand (QC): 6 Chair/Cjv-df-Rhpia Xfer(QC): 6 Toilet Transfer (QC): 6 Walk 10 feet (QC): 6 Walk 50ft with 2 Turns (QC): 6 Walk 150 ft (QC): 6 PT Plan Treatment/Plan Treatment Plan: Discontinue PT Treatment Plan: Bed Mobility, Education, Functional Activity Jim, Functional Strength, Gait, Safety, Therapeutic Exercise, Transfers Treatment Duration: Nov 24, 2022 Frequency: 11 times per week Estimated Hrs Per Day: .5 hour per day Patient and/or Family Agrees t: Yes Safety Risks/Education Patient Education: Gait Training, Transfer Techniques, Correct Positioning, Instructions to Caregiver, Disease Process, Safety Issues Teaching Recipient: Patient Teaching Methods: Demonstration, Discussion Response to Teaching: Verbalize Understanding, Return Demonstration, Reinforcement Needed Time Time In: 1040 Time Out: 1055 DATE: Nov 21, 2022 Total Billed Treatment Time: 15 Total Billed Treatment 1,GT15m DORINA FERNÁNDEZ LINE PREP COOK Nov 21, 2022 10:59
[2022-11-21 12:04] VITALS: BP 139/76
== END 2022-11-21 12:31 | disposition home or self-care (01) ==
LOC: SDC 08:55 → 4TH 15:16 → SDC 11-21 12:31
PROVIDERS: ATTEND Orthopaedic Surgery
DX: M17.12 Unilateral primary osteoarthritis, left knee (principal); G89.18 Other acute postprocedural pain; E66.9 Obesity, unspecified; Z68.42 Body mass index [BMI] 45.0-49.9, adult; Z28.310 Unvaccinated for COVID-19
CPT/HCPCS: 36415; 73560; 85014; 85018; 87081; 94664

== ENCOUNTER → 2022-11-19 | Outpatient (CLI) | payer BC ==
[~2022-11-19] MED LIST changes: +ACET-2267 PO; +ASPI-1238 PO; +GLUC-219 PO; +MULT-1136 PO; +OXC5T PO
--- NOTE | 2022-11-19 14:41 | Diagnostic Imaging Report ---
KNEE, LEFT, 4 VIEWS OR > INDICATION: Left knee pain. COMPARISON: 03/06/2016. TECHNIQUE: Four views of the left knee. FINDINGS: Severe tricompartmental osteoarthritis is characterized by joint space narrowing and marginal osteophyte formation. The joint space narrowing is greatest in the medial compartment. Small knee joint effusion. No mineralized joint bodies, fracture, or worrisome focal osseous lesion. IMPRESSION: Tricompartmental severe osteoarthritis. Dictated by: Dictated on workstation # [id number]
== END ==
LOC: ORTHO 09:11
PROVIDERS: ATTEND Orthopaedic Surgery
DX: M17.12 Unilateral primary osteoarthritis, left knee (principal); I10 Essential (primary) hypertension
CPT/HCPCS: 73564

== ENCOUNTER → 2022-11-29 | Outpatient (CLI) | payer BC ==
[~2022-11-29] MED LIST changes: +ACET-2267 PO; +ASPI-1238 PO; +OXC5T PO
== END ==
LOC: ORTHO 10:15
PROVIDERS: ATTEND Orthopaedic Surgery
DX: Z47.89 Encounter for other orthopedic aftercare (principal); I10 Essential (primary) hypertension

== ENCOUNTER → 2022-12-20 | Outpatient (CLI) | payer BC ==
--- NOTE | 2022-12-21 08:22 | Diagnostic Imaging Report ---
Indication: Postop follow-up, left knee arthroplasty AP and lateral views left knee are obtained and compared to 11/19/2022. Left knee prosthesis appears in good alignment with no sign of fracture or device loosening. IMPRESSION: Well aligned left knee prosthesis with no fracture or device loosening. Dictated by: Dictated on workstation # [id number]
== END ==
LOC: ORTHO 09:34
PROVIDERS: ATTEND Orthopaedic Surgery
DX: Z47.89 Encounter for other orthopedic aftercare (principal); Z96.652 Presence of left artificial knee joint
CPT/HCPCS: 73560

== ENCOUNTER → 2023-01-11 | Outpatient (RCR) | payer BC | END | disposition home or self-care (01) | PROVIDERS: ATTEND Orthopaedic Surgery | DX: Z47.1 Aftercare following joint replacement surgery (principal); Z96.652 Presence of left artificial knee joint ==

== ENCOUNTER 2023-01-16 11:26 | Outpatient (RCR) | payer BC | END 2023-01-16 11:55 | disposition home or self-care (01) | PROVIDERS: ATTEND Orthopaedic Surgery | DX: Z47.1 Aftercare following joint replacement surgery (principal); I10 Essential (primary) hypertension; Z96.652 Presence of left artificial knee joint ==

== ENCOUNTER → 2023-01-31 | Outpatient (CLI) | payer BC | LOC: ORTHO 10:55 | PROVIDERS: ATTEND Orthopaedic Surgery | DX: Z47.89 Encounter for other orthopedic aftercare (principal); I10 Essential (primary) hypertension ==